=== PATIENT | male | born 1990 | race Caucasian/White ===

== ENCOUNTER 2016-10-05 20:10 | Emergency (ER) | payer OTHER ==
[~2016-10-05] VITALS: Ht 182.9 cm; Wt 90.7 kg
[2016-10-05 20:25] VITALS: BP 144/78
[2016-10-05] MEDS ORDERED: PRED20TA PO (20:58)
--- NOTE | 2016-10-05 20:58 | PHYS DOC ---
Past Medical History Past Medical History: No Pertinent History Past Surgical History: No Surgical History Alcohol Use: Rarely Drug Use: None Adult General Chief Complaint Chief Complaint: ITCHING HPI HPI Patient is a 26 year old male presents emergency department stating that he has welts and hives on his bilateral antecubital areas and down into his wrist areas. 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 He has just recently been back for the last 2 weeks. Patient denies any fever, chills or any nausea or vomiting. Denies any shortness of air difficulty breathing. Patient denies any recent change in laundry detergents, soaps or any foods. Patient states that he did try Benadryl. Patient states that he has had this rash on and off for the last 2-3 days. Review of Systems Review of Systems Constitutional: Denies fever or chills [] Eyes: Denies change in visual acuity, redness, or eye pain [] HENT: Denies nasal congestion or sore throat [] Respiratory: Denies cough or shortness of breath [] Cardiovascular: No additional information not addressed in HPI [] GI: Denies abdominal pain, nausea, vomiting, bloody stools or diarrhea [] : Denies dysuria or hematuria [] Musculoskeletal: Denies back pain or joint pain [] Integument: rash denies skin lesions [] Neurologic: Denies headache, focal weakness or sensory changes [] Endocrine: Denies polyuria or polydipsia [] Allergies Allergies Allergies Coded Allergies Type Severity Reaction Last Updated Verified No Known Drug Allergies 10/05/16 No Physical Exam Physical Exam Constitutional: Well developed, well nourished, no acute distress, non-toxic appearance. [] HENT: Normocephalic, atraumatic, bilateral external ears normal, oropharynx moist, no oral exudates, nose normal. [] Eyes: PERRLA, EOMI, conjunctiva normal, no discharge. [] Neck: Normal range of motion, no tenderness, supple, no stridor. [] Cardiovascular:Heart rate regular rhythm, no murmur [] Lungs & Thorax: Bilateral breath sounds clear to auscultation [] Skin: Warm, dry, no erythema, patient was noted to have hives in the antecubital area on bilateral arms as well as down to the wrist area. Patient was also noted to have some hives on the right and left side of the chest wall. No discharge or drainage noted from the sites. Back: No tenderness Extremities: No tenderness, no cyanosis, no clubbing, ROM intact, no edema. [] Neurologic: Alert and oriented X 3, normal motor function, normal sensory function, no focal deficits noted. [] Psychologic: Affect normal, judgement normal, mood normal. [] Current Patient Data Vital Signs Vital Signs Date Time Temp Pulse Resp B/P (MAP) Pulse Ox O2 Delivery O2 Flow Rate FiO2 10/05/16 20:25 98.3 71 18 97 Room Air 98.3 EKG EKG [] Radiology/Procedures Radiology/Procedures [] Course & Med Decision Making Course & Med Decision Making Pertinent Labs and Imaging studies reviewed. (See chart for details) Patient was provided with prednisone, Benadryl, Pepcid here in the emergency department. Patient will be discharged home with recommendations to continue with the Benadryl 25 mg every 6 hours. He was instructed that this medication will cause drowsiness do not take any be alert and oriented. Patient was also instructed to use Pepcid 20 mg daily. He'll also be provided with a prescription for prednisone in which she will be able to take for the next 7 days. Signs and symptoms to return back to emergency department as been provided. Patient agrees with discharge instructions treatment regimens and follow-up recommendations. [] Dragon Disclaimer Dragon Disclaimer This electronic medical record was generated, in whole or in part, using a voice recognition dictation system. Departure Departure Impression: Primary Impression: Urticarial rash Disposition: 01 HOME, SELF-CARE Condition: STABLE Patient Instructions: Hives, [id number] Additional Instructions: Keep the areas clean and dry. Keep the areas as cool as possible. Benadryl 25 mg every 6 hours. This medication will cause drowsiness do not take any be alert and oriented. Medications as prescribed. Pepcid 20 mg daily. Aveeno baths may also help soothe the skin. Follow-up to primary care physician next 3-5 days. Return back to emergency department signs and symptoms of become worse. Scripts Prednisone (PREDNISONE) 20 Mg Tablet 40 MG PO DAILY for 7 Days, #14 TAB Prov: TOYA MARIE APRN 10/05/16 TOYA MARIE APRN Oct 05, 2016 20:58
[2016-10-05] MEDS ORDERED: predniSONE 20 MG TABLET PO ONE (21:00)
[2016-10-05] MEDS ORDERED: FAMOTIDINE 20 MG TABLET. PO ONE (21:00)
[2016-10-05] MEDS ORDERED: diphenhydrAMINE HCL 25 MG CAPSULE PO ONE (21:00)
== END 2016-10-05 21:49 | disposition home or self-care (01) ==
LOC: ER 20:10
DX: L50.9 Urticaria, unspecified (principal)
CPT/HCPCS: 99284; J7512; Q0163